=== PATIENT | male | born 1960 | race Caucasian/White ===

== ENCOUNTER 2020-06-03 09:22 | Outpatient (RCR) | payer MEDICAID, SELFPAY | END 2020-06-05 23:59 | disposition home or self-care (01) | LOC: WOUND 09:22 | PROVIDERS: Family Provider Nurse Practitioner Family; PCP Family Medicine; Visit Provider Nurse Practitioner Family | DX: I96 Gangrene, not elsewhere classified (principal); L89.153 Pressure ulcer of sacral region, stage 3 | CPT/HCPCS: 11042; 87070; 87077; 87176; 87186; 87205; 99213; G0463 ==

== ENCOUNTER 2020-06-10 09:33 | Outpatient (CLI) | payer MEDICAID, SELFPAY | END 2020-06-10 09:34 | disposition home or self-care (01) | LOC: WOUND 09:33 | PROVIDERS: Family Provider Nurse Practitioner Family; PCP Family Medicine; Visit Provider Thoracic Surgery (Cardiothoracic Vascular Surgery) | DX: L89.153 Pressure ulcer of sacral region, stage 3 (principal); L89.892 Pressure ulcer of other site, stage 2; L98.492 Non-pressure chronic ulcer of skin of other sites with fat layer exposed | CPT/HCPCS: 11042; 11045 ==

== ENCOUNTER 2020-06-17 09:46 | Outpatient (CLI) | payer MEDICAID, SELFPAY ==
--- NOTE | 2020-06-18 13:51 | ONC CON_ITS ---
Dr. Palomares New Patient Note Patient: Donovan Nelson Unit #: [id number]: 1960 Dicatated By: Kong Palomares M.D.Date of Visit: Jun 17, 2020 Onc MED New Patient/Consult Referring Physician: Car Cade History of Present Illness: Mr. 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 As per hospital record,patient was monitored and managed in neurology stroke services after extraventricular drain was removed and his overall condition continued to improve and he did start tolerating p.o. feeding and passed for a dysphagia II diet prior to discharge and advised to continue physical therapy as an outpatient. During his hospital stay, renal ultrasound was done to work-up renovascular hypertension but patient could not tolerate the procedure so he underwent CTA abdomen/pelvis which showed multiple masses within the Root of the mesentery with abdominal and retroperitoneal lymphadenopathy. There are multiple suspected masses within the spleen, subsequently on May 12, 2020, patient underwent ultrasound-guided core biopsy of right mid abdomen mass which was about 6.2 x 4.8 cm in size and final pathology report confirmed B cell lymphoma and in microscopic description sections of mesenteric lymph node core biopsy showed effacement of the ced architecture and a large area of necrosis. The usual ced architecture has been replaced by a nodular infiltrate composed of predominantly small mature appearing lymphocytes with histiocytes. Which focally formed aggregates, and scattered larger atypical cells. A panel of immunohistochemistry stains, CD3, CD20, CD10, CD30, CD15, CD23, CD21, PAX 5, cyclin D1, MUM1, c-Myc, BCL-2, BCL 6 and Ki-67 and LAZARO ADAM was performed and the surrounding small lymphocytes are predominantly CD3 positive. CD21 and CD23 are negative for follicular dendritic cell meshwork. And Ki-67 proliferation index average 25%, LAZARO ADAM is negative. So differential diagnosis interpreted by pathology was including nodular lymphocyte predominant Hodgkin lymphoma and T histiocyte rich large B-cell lymphoma, case was discussed with Dr. Boyle hematology fellow at [facility] on June 17, 2019 and he said more tissue is needed to confirm whether it is Hodgkin's lymphoma or non-Hodgkin's lymphoma and recommended lymph node biopsy. Patient was seen by hematology oncology during his stay at [facility] but no further staging work-up or treatment was initiated because of patient's overall condition due to intracranial bleed. Patient past medical history significant for gout and alcohol abuse at the time of discharge from [facility] on May 22, 2020, patient was sent home on amlodipine 10 mg p.o. daily hydralazine 25 mg p.o. twice daily carvedilol 25 mg p.o. twice daily and clonidine 0.2 mg patch but as per now as his blood pressure was dropping really low, patient is off all his antihypertensive medication and now being followed and managed by his PMD and patient is awaiting neurology evaluation. Patient denies any night sweats, denies any fever chills, denies any peripheral lymphadenopathy and most of the information is available from the caregiver/his as patient is having difficulty in communication due to recent intracranial bleed. Past Medical History: Mr. Nelson's medical history consists of gout, hypertension, and stroke. Past Surgical History: Mr. Nelson's surgical/procedural history consists of bone marrow aspiration/biopsy. Medications: Multivitamin 1 Tablet Oral daily Allergies: No Known Allergies. Social History: Mr. Nelson is . Mr. Nelson no longer smokes. He is a former drinker. He has indicated exposure to the following products: chewing tobacco. Family History: There is no documented family history. Review Of Symptoms: Constitutional - Appetite is good and weight is stable. No fever, night sweats, or hot flashes. Energy level is poor, ENMT - No sinus congestion/drainage. No mouth sores. No sore throat or difficulty swallowing, Hematologic/Lymphatic - No abnormal bruising or bleeding, Respiratory - No shortness of breath. No cough. No pleuritic pain or hemoptysis, Cardiovascular - No angina pain. No palpitations, Gastrointestinal - No nausea or vomiting. No heartburn or acid reflux. No diarrhea or constipation. No blood in the stool or black stools, Genitourinary (M) - No dysuria or hematuria. No urinary frequency. No urgency or incontinence, Musculoskeletal - Positive for joint pain, hx of gout, Neurologic - Pt suffered stroke on 04/13/2020, per 's report, Psychiatric - No anxiety or depression. No insomnia. Vital Signs: Performed on Jun 17, 2020 11:09: 34.97 (HIGH), 2.17 sq.m, 68 in, 98 %, 119 /min (HIGH), 16 /min, 126/78 mm(hg), 99.8 F (HIGH), and 230 lbs (HIGH). Performance Status: 3 - Capable of only limited self-care, confined to bed or chair more than 50% of waking hours. (ECOG) Physical Examination: ENMT - No mouth sores, no thrush, no jaundice, Respiratory - Lungs are clear to auscultation, Cardiovascular - Regular rate and rhythm of heart, Abdomen - Soft, bowel sounds present G-tube site clean, Extremities - Trace edema bilaterally, unilateral weakness status post stroke. Lab/Imaging: Most recent lab results are not available for this patient. Impression: B-cell lymphoma per ultrasound-guided right mid abdominal mass biopsy done on May 12, 2020 As per immunohistochemistry, being positive for CD 3 and negative for CD1a and CD23 for follicular dendritic cell meshwork and Ki-67 was 25 and LAZARO ADAM is negative, differential include nodular lymphocyte predominant Hodgkin's lymphoma versus T histiocyte rich large B-cell lymphoma, CTA abdomen Done on May 08, 2020Which was done for work-up for essential hypertension, incidentally , showed multiple masses within the root of mesentery with abdominal and retroperitoneal lymphadenopathy and multiple suspected masses within the spleen History of right basal ganglia intraparenchymal hemorrhage with intraventricular extension diagnosed on April 14, 2020 with left-sided weakness G-tube placement for dysphagia but improved and tolerated p.o. feeding. Plan: Discussed with patient and caregiver regarding his disease status and further work-up and treatment options, patient's was informed based on ultrasound-guided biopsy of abdominal mass, it confirmed B-cell lymphoproliferative disorder but differential include non-Hodgkin lymphoma versus Hodgkin lymphoma and it is important to identify the type of lymphoproliferative disorder to decide definitive treatment plan thus patient and was informed that we will discuss is case pathology at [facility] to see if it can be clarified whether we are dealing with Hodgkin's lymphoma or non-Hodgkin's lymphoma if not then we will consider further investigation. Patient's agreed. Patient will return to clinic in 1 week with CBC CMP and LDH and will also consider CT PET or CT scan of chest abdomen pelvis for staging purposes Addendum Case was discussed with Dr. Boyle, pathology, fellow who recommended additional biopsy to differentiate between Hodgkin's lymphoma or non-Hodgkin's. We will order CT scan of neck chest abdomen pelvis and if accessible lymph nodes is observed, consider, we will consider excisional biopsy. Signed By: Kong Palomares M.D. <<Signature on File>>
== END 2020-06-17 09:47 | disposition home or self-care (01) ==
LOC: ONCMED 09:49
PROVIDERS: Family Provider Nurse Practitioner Family; PCP Family Medicine; Visit Provider Internal Medicine Hematology & Oncology
DX: C85.13 Unspecified B-cell lymphoma, intra-abdominal lymph nodes (principal); I69.154 Hemiplegia and hemiparesis following nontraumatic intracerebral hemorrhage affecting left non-dominant side; I10 Essential (primary) hypertension; R13.10 Dysphagia, unspecified; Z93.1 Gastrostomy status
CPT/HCPCS: 99204

== ENCOUNTER 2020-06-17 13:28 | Outpatient (CLI) | payer MEDICAID, SELFPAY | END 2020-06-17 13:29 | disposition home or self-care (01) | LOC: WOUND 13:29 | PROVIDERS: Family Provider Nurse Practitioner Family; PCP Family Medicine; Visit Provider Thoracic Surgery (Cardiothoracic Vascular Surgery) | DX: I96 Gangrene, not elsewhere classified (principal); L89.154 Pressure ulcer of sacral region, stage 4; L89.892 Pressure ulcer of other site, stage 2; L98.492 Non-pressure chronic ulcer of skin of other sites with fat layer exposed | CPT/HCPCS: 11043; 11046; 87070; 87077; 87176; 87186; 87205 ==

== ENCOUNTER 2020-06-20 08:00 | Outpatient (CLI) | payer MEDICAID, SELFPAY ==
[2020-06-20 09:54] LABS: Basophils % 0.3 %; Eosinophils # 0.2 10^3/uL (0.0-0.8); Eosinophils % 1.6 %; Hematocrit 30.8 % (42.0-52.0); Hemoglobin 9.3 g/dL (11.7-16.6); Lymphocytes # 1.4 10^3/uL (0.8-4.8); Lymphocytes % 12.8 %; Mean Corpuscular HGB Conc 30.2 g/dL (30.0-36.0); Mean Corpuscular Hemoglobin 30.3 pg (28.0-34.0); Mean Corpuscular Volume 100.3 fL (80-94); Mean Platelet Volume 9.5 fL (7.4-10.4); Monocytes # 0.8 10^3/uL (0.2-0.9); Monocytes % 7.2 %; Neutrophils # 8.16 10^3/uL (1.8-7.7); Neutrophils % 74.9 %; Nucleated Red Blood Cells % 0 %; Platelet Count 300 10^3/cmm (130-400); Red Blood Count 3.07 10^6/uL (4.1-5.3); Red Cell Distribution Width 14.3 % (12.1-15.1); White Blood Count 10.9 10^3/uL (4.0-10.0)
[2020-06-20 10:17] LABS: Alanine Aminotransferase 55 U/L (0-41); Albumin Level 2.8 g/dL (3.5-5.2); Alkaline Phosphatase 122 IU/L (40-130); Anion Gap 14.6 (5-19); Aspartate Amino Transferase 26 U/L (0-40); Blood Urea Nitrogen 64 mg/dL (8-23); Carbon Dioxide 23 mmol/L (22-29); Chloride 110 mmol/L (98-107); Globulin 3.6 g/dL (1.3-4.6); Glomerular Filtration Rate 36.1 mL/min (90-130); Glucose 108 mg/dL (65-115); Osmolality Calculated 315 mOsm/kg (285-295); Potassium 4.6 mmol/L (3.5-5.1); Sodium 143 mmol/L (136-145); Total Bilirubin 0.2 mg/dL (0.15-1.2); Total Protein 6.4 g/dL (6.6-8.7)
== END 2020-06-20 08:01 | disposition home or self-care (01) ==
LOC: ONCMED 10:52
PROVIDERS: Family Provider Nurse Practitioner Family; PCP Family Medicine; Visit Provider Internal Medicine Hematology & Oncology
DX: C85.13 Unspecified B-cell lymphoma, intra-abdominal lymph nodes (principal)
CPT/HCPCS: 80053; 85025

== ENCOUNTER 2020-06-24 13:26 | Outpatient (CLI) | payer MEDICAID, SELFPAY | END 2020-06-24 13:27 | disposition home or self-care (01) | LOC: WOUND 13:28 | PROVIDERS: Family Provider Nurse Practitioner Family; PCP Family Medicine; Visit Provider Thoracic Surgery (Cardiothoracic Vascular Surgery) | DX: L89.154 Pressure ulcer of sacral region, stage 4 (principal) | CPT/HCPCS: 11043; 11046 ==

== ENCOUNTER 2020-07-01 12:56 | Outpatient (CLI) | payer MEDICAID, SELFPAY | END 2020-07-01 12:57 | disposition home or self-care (01) | LOC: WOUND 12:57 | PROVIDERS: PCP Family Medicine; Visit Provider Thoracic Surgery (Cardiothoracic Vascular Surgery) | DX: I96 Gangrene, not elsewhere classified (principal); L89.154 Pressure ulcer of sacral region, stage 4 | CPT/HCPCS: 11043; 11046 ==

== ENCOUNTER 2020-07-08 13:00 | Outpatient (CLI) | payer MEDICAID, SELFPAY | END 2020-07-08 13:01 | disposition home or self-care (01) | LOC: WOUND 13:01 | PROVIDERS: PCP Family Medicine; Visit Provider Thoracic Surgery (Cardiothoracic Vascular Surgery) | DX: I96 Gangrene, not elsewhere classified (principal); L89.154 Pressure ulcer of sacral region, stage 4 | CPT/HCPCS: 11043; 11046 ==

== ENCOUNTER 2020-07-09 09:34 | Outpatient (CLI) | payer MEDICAID, SELFPAY ==
[2020-07-09 10:18] LABS: Alanine Aminotransferase 19 U/L (0-41); Albumin Level 2.9 g/dL (3.5-5.2); Alkaline Phosphatase 79 IU/L (40-130); Anion Gap 16.2 (5-19); Aspartate Amino Transferase 23 U/L (0-40); Blood Urea Nitrogen 44 mg/dL (8-23); Calcium 11.5 mg/dL (8.5-10.5); Carbon Dioxide 28 mmol/L (22-29); Chloride 93 mmol/L (98-107); Globulin 3.3 g/dL (1.3-4.6); Glomerular Filtration Rate 32.2 mL/min (90-130); Glucose 105 mg/dL (65-115); Osmolality Calculated 288 mOsm/kg (285-295); Potassium 4.2 mmol/L (3.5-5.1); Prealbumin 14.8 mg/dL (20-40); Sodium 133 mmol/L (136-145); Total Bilirubin 0.3 mg/dL (0.15-1.2); Total Protein 6.2 g/dL (6.6-8.7)
== END 2020-07-09 09:35 | disposition home or self-care (01) ==
PROVIDERS: PCP Family Medicine; Visit Provider Nurse Practitioner Family
DX: L89.159 Pressure ulcer of sacral region, unspecified stage (principal); G81.90 Hemiplegia, unspecified affecting unspecified side
CPT/HCPCS: 80053; 84134